=== PATIENT | male | born 1955 | race Caucasian/White ===

== ENCOUNTER → 2019-02-04 | Outpatient (CLI) | payer MEDICARE ==
[2018-03-27 11:00] VITALS: BP 141/72
[~2019-02-04] MED LIST: ASPI-612 PO; CLOP75TA PO; ISOS30TA4 PO; LISI-338 PO; LOSA1TAB22 PO; LOVA20TA2 PO; METO25TA4 PO; MULT1TAB52 PO; SIMV40TA PO
--- NOTE | 2019-02-04 13:27 | RAD ---
EXAM: Chest, 2 views. HISTORY: Chest pain. COMPARISON: 03/25/2018 FINDINGS: 2 views the chest are obtained. There is stable bilateral linear opacity within the lower lobes likely due to scarring or atelectasis. There is no infiltrate, pleural effusion or pneumothorax. There is a stable cardiac silhouette and evidence of prior CABG. IMPRESSION: Stable suspected linear bilateral lower lobe atelectasis or scarring. Electronically signed by: Kateryna Mares MD (02/04/2019 1:24 PM) [place] [id number]
== END | disposition home or self-care (01) ==
LOC: RAD 12:36
PROVIDERS: ATTEND Internal Medicine Cardiovascular Disease
DX: R07.81 Pleurodynia (principal); Z95.1 Presence of aortocoronary bypass graft
CPT/HCPCS: 71046

== ENCOUNTER → 2019-03-29 | Outpatient (CLI) | payer MEDICARE ==
[2018-03-27 11:00] VITALS: BP 141/72
[~2019-03-29] MED LIST changes: +REGADENOSON 0.4 MG/5 ML DISP.SYRIN. IV ONE
--- NOTE | 2019-03-29 09:33 | CARD ---
MR#: [id number] Date of Study: 03/29/2019 Ordering Physician: LOTUS GARCIA, Referring Physician: LOTUS GARCIA, Tech: Hawa Owens BINTA APPROVED REPORT EXAM: Two-dimensional and M-mode echocardiogram with Doppler and color Doppler. Other Information Quality : Fair INDICATION Cardiac Disease: CAD 2D DIMENSIONS Left Atrium(2D)4.5 (1.6-4.0cm)IVSd1.0 (0.7-1.1cm) Aortic Root(2D)2.9 (2.0-3.7cm)LVDd4.1 (3.9-5.9cm) LVOT Diameter2.0 (1.8-2.4cm)PWd1.1 (0.7-1.1cm) LVDs2.1 (2.5-4.0cm)FS (%) 30.0 % SV61.0 mlLVEF(%)60.0 (>50%) Aortic Valve AoV Peak Delmar.142.3cm/sAoV VTI29.0cm AO Peak GR.8.1mmHgLVOT Peak Delmar.100.1cm/s AO Mean GR.4mmHgAVA (VMAX)2.22cm2 YUE (VTI)2.40cm2 Mitral Valve MV E Wnzgakif49.0cm/sMV DECEL [id number] MV A Dqvnprrh42.9cm/sE/A Ratio1.4 Pulmonary Vein S1 Ehiegplp03.8cm/sD2 Wzgrklfa91.2cm/s LEFT VENTRICLE The left ventricle is normal size. There is normal left ventricular wall thickness. The left ventricu lar systolic function is normal. The Ejection Fraction is 60%. There is normal LV segmental wall ayden on. RIGHT VENTRICLE The right ventricle is normal size. The right ventricular systolic function is normal. ATRIA The left atrium is mildly dilated. The right atrium size is normal. The interatrial septum is intact with no evidence for an atrial septal defect or patent foramen ovale as noted on 2-D or Doppler imagi ng. AORTIC VALVE The aortic valve is calcified but opens well. Doppler and Color Flow revealed no significant aortic r egurgitation. There is no significant aortic valvular stenosis. MITRAL VALVE The mitral valve is calcified but opens well. There is no evidence of mitral valve prolapse. There is no mitral valve stenosis. Doppler and Color-flow revealed trace mitral regurgitation. TRICUSPID VALVE The tricuspid valve is normal in structure and function. Doppler and Color Flow revealed trace tricus pid valve regurgitation. There is no tricuspid valve stenosis. PULMONIC VALVE The pulmonic valve is not well visualized. Doppler and Color Flow revealed no pulmonic valvular regur gitation. There is no pulmonic valvular stenosis. GREAT VESSELS The aortic root is normal in size. The ascending aorta is normal in size. The IVC is normal in size a nd collapses >50% with inspiration. PERICARDIAL EFFUSION There is no evidence of significant pericardial effusion. Critical Notification Critical Value: No <Conclusion> The left ventricular systolic function is normal. The Ejection Fraction is 60%. There is normal LV segmental wall motion. Trace mitral regurgitation. Trace tricuspid valve regurgitation. There is no evidence of significant pericardial effusion. Signed by : Bobby Cuevas, Electronically Approved : 03/29/2019 09:33:01
--- NOTE | 2019-03-29 12:27 | RAD ---
MR#: [id number] Date of Study: 03/29/2019 Ordering Physician: LOTUS GARCIA, Referring Physician: ROGER ENG Tech: CORNELIO Hensley APPROVED REPORT Test Type: Pharmacological Stress Nurse/Tech: Lou Perez RN Test Indications: CAD Cardiac History: Hypertension,CABG 2004 Medications: See Electronic Medical Record Medical History: See Electronic Medical Record Resting ECG: SB with AV block and BBB Resting Heart Rate: 45 bpm Resting Blood Pressure: 145/73mmHg Pretest Chest Pain: No chest pain Nurse/Tech Notes S1,S2 and lungs are clear to auscultation. Consent: The procedure was explained to the patient in lay terms. Informed consent was witnessed. Laurent eout was entered into [employer]. History and Stress Test performed by RT Kasey (R) (N) Pharm. Details Pharmacologic stress testing was performed using 0.4mg per 5ml of regadenoson given intravenously ove r 7-10 seconds. Stress Symptoms Dizziness,chest pressure in right pectoral area POST EXERCISE Reason for Termination: Infusion complete Target HR: No Max HR: 68 bpm Max Blood Pressure: 151/63mmHg Blood Pressure response to exercise: Normal blood pressure response during stress. Heart Rate response to exercise: WNL Chest Pain: Yes. see note above Arrhythmia: No. ST Change: No. INTERPRETATION Stress EKG Conclusion: The resting EKG showed a sinus bradycardia and nonspecific ST-T wave changes. The stress EKG showed no significant changes from baseline. No EKG evidence of stress-induced ischemia. Imaging Protocol IMAGE PROTOCOL: Rest Tc-99m/stress Tc-99m 1 day Rest: Stress: Viability: Radiopharm.Tc99m [id number] Sestamibi [id number] 33mCi Duration 15min. 10min. Img Date 03/29/2019 03/29/2019 Inj-Img [id number]. 60min. Rest Admin Site:IV - Right AntecubitalAdministrator:RT Kasey (R)(N) Stress Admin Site: IV - Right AntecubitalAdministrator: Modesto Rojas, RT (R)(N) STRESS DATA End Diast. Vol.100.0mlAv. Heart Rate51.0bpm End Syst. Vol.47.0mlCO Index BSA0.0L/min Myocardial Iwrf261.0gEject. Gmxdmyqa57.0% Stress Rates Pk. Fill Rate2.29EDV/secLVtime Pk. Fill 184.57msec Pk. Empty Rate2.60ESV/secLVtime Pk. Pzeij800.32msec 12/02 Pk. Fill1.46EDV/sec Stress Scores Regional WT1.00Summed WT10.00 Regional WM0.00Summed WM5.00 LV Perfusion The stress scans showed a mild defect in the inferior lateral wall. The rest scans showed no significant defects. Nuclear imaging suggested a small area of reversible ischemia in the inferior lateral wall. Wall Motion Left ventricular systolic function shows an ejection fraction of 53% and slight septal wall hypokines is. LV Perf. Quant 17 Seg. SSS4.00 17 Seg. SRS0.00 17 Seg. SDS4.00 Stress Defect Extent (% LAD)0.00Rest Defect Extent (% LAD)0.00Rev. Defect Extent (% LAD)0.00 Stress Defect Extent (% LCX) 53.80Rest Defect Extent (% LCX)0.00Rev. Defect Extent (% LCX)51.30 Stress Defect Extent (% RCA)0.00Rest Defect Extent (% RCA)0.00Rev. Defect Extent (% RCA)0.00 Stress Defect Extent (% MAEGAN)12.20Rest Defect Extent (% MAEGAN)0.00Rev. Defect Extent (% MAEGAN)11.70 Conclusion 1. No EKG evidence of stress-induced ischemia. 2. Nuclear imaging shows a small area of reversible ischemia in the inferior lateral wall. 3. Left ventricular systolic function is 53% with slight septal wall hypokinesis. 4. Moderate risk Lexiscan nuclear stress test. Signed by : Sesar Andersen MD Electronically Approved : 03/29/2019 12:26:18
== END | disposition home or self-care (01) ==
LOC: ECHO 07:24
PROVIDERS: ATTEND Internal Medicine Cardiovascular Disease
DX: I25.10 Atherosclerotic heart disease of native coronary artery without angina pectoris (principal); I45.4 Nonspecific intraventricular block; I44.30 Unspecified atrioventricular block; I25.89 Other forms of chronic ischemic heart disease; I10 Essential (primary) hypertension; R00.1 Bradycardia, unspecified; Z95.1 Presence of aortocoronary bypass graft
CPT/HCPCS: 78452; 93017; 93306; A9500; J2785